=== PATIENT | female | born 1955 | race Caucasian/White ===

== ENCOUNTER → 2017-04-17 | Outpatient (CLI) | payer OTHER, MEDICARE ==
[~2017-04-17] VITALS: Ht 170.2 cm; Wt 79.4 kg
[~2017-04-17] MED LIST: ADDERALL XR 2525 MG; ADVAIR 250-501 EACH INH; AFRIN120 MG; AFRIN15 ML INH; ALBUTEROL2.5 MG/31 INH; AMBIEN 10 MG TA10 MG PO; ATORVASTATIN CA40 MG PO; CELEXA40 MG PO; CELLCEPT500 MG PO; CINNAMON500 MG PO; CLONAZEPAM 1 MG1 M1 PO; CORRECTOL5 M1 PO; COUMADIN6 MG PO; CURCUMIN1 GM PO; DARVOCET-N 1001 EAC1; DESYREL300 MG PO; ENOXAPARIN80 MG/0.1 SUBQ; FLEXERIL; GLUCOPHAGE1000 MG PO; HUMALOG100 UNIT/1 SUBQ; KEFLEX250 MG PO; LAMICTAL XR100 MG PO; LANTUS100 UNIT/M SUBQ; LIORESAL 10 MG10 MG PO; MAGNESIUM500 MG PO; MIRAPEX0.125 MG PO; NORCO 10-325 T1 EACH PO; NOVOLOG100 UNIT/1; NYSTATIN-TRIAMC15 GM TOP; PREVACID; PRILOSEC 20 MG20 MG PO; PROAIR RESPICL90 MCG INH; PROBIOTIC1 EAC1 PO; PROMETHAZINE/C118 ML PO; PROVENTIL HFA6.7 G1; SENOKOT-S1 TA1 PO; SEROQUEL 50 MG50 MG PO; SIMVASTATIN80 MG; SLOW-MAG64 M1 PO; ULTRAM 50MG TAB50 MG; VITAMIN D1000 UNI1 PO; VITAMIN D2000 UNIT PO
[2017-04-17 09:09] VITALS: BP 107/67
[2017-04-17 09:29] LABS: HEMATOCRIT 42.4 % (37.0-47.0); HEMOGLOBIN 14.2 gm/dL (12.0-15.0); MCH 31.6 pg (26.0-34.0); MCHC 33.6 g/dL (28.0-37.0); RBC 4.51 mil/uL (4.20-5.00); RDW 15.8 % (10.5-14.5); WBC 4.7 thou/uL (4.0-11.0)
[2017-04-17 09:45] LABS: CALCIUM 9.1 mg/dL (8.5-10.1); CREATININE 0.6 mg/dL (0.6-1.0); POTASSIUM 3.9 mmol/L (3.5-5.1)
== END ==
LOC: SPEC 07:22
PROVIDERS: Radiology Vascular & Interventional Radiology
DX: M48.56XA Collapsed vertebra, not elsewhere classified, lumbar region, initial encounter for fracture (principal); G47.30 Sleep apnea, unspecified; Z86.73 Personal history of transient ischemic attack (TIA), and cerebral infarction without residual deficits; E11.9 Type 2 diabetes mellitus without complications; M19.90 Unspecified osteoarthritis, unspecified site; Z98.51 Tubal ligation status; D64.89 Other specified anemias; F17.210 Nicotine dependence, cigarettes, uncomplicated; J44.9 Chronic obstructive pulmonary disease, unspecified; I25.10 Atherosclerotic heart disease of native coronary artery without angina pectoris; I10 Essential (primary) hypertension; E78.4 Other hyperlipidemia; K21.9 Gastro-esophageal reflux disease without esophagitis; Z79.4 Long term (current) use of insulin; Z88.0 Allergy status to penicillin; Z88.8 Allergy status to other drugs, medicaments and biological substances; Z91.040 Latex allergy status; Z79.899 Other long term (current) drug therapy